=== PATIENT | female | born 1995 | race Caucasian/White ===

== ENCOUNTER 2018-07-13 17:20 | Emergency (ER) | payer MEDICAID ==
[2018-07-13] MEDS: ONDANSETRON (ODT) 4 MG TAB ODT (18:15)
[2018-07-13] MEDS: HYDROCODONE/APAP (5/325) TAB PO (18:15)
== END 2018-07-13 20:57 | disposition home or self-care (01) ==
LOC: E/R 17:20
DX: S09.90XA Unspecified injury of head, initial encounter (principal); S13.4XXA Sprain of ligaments of cervical spine, initial encounter; R07.9 Chest pain, unspecified; R51 Headache; V49.50XA Passenger injured in collision with unspecified motor vehicles in traffic accident, initial encounter
CPT/HCPCS: 70450; 71045; 72125; 84703; 99284-25